=== PATIENT | female | born 1995 | race Caucasian/White ===

== ENCOUNTER 2016-04-06 16:59 | Emergency (ER) | payer SELFPAY ==
[2016-04-06 17:21] VITALS: BP 135/80
--- NOTE | 2016-04-06 17:44 | ED Physician Documentation ---
Upper Respiratory Symptoms - HISTORIAN Historian: patient, spouse - HPI Stated Complaint: sore throat Chief Complaint: Cough/ Upper Respiratory Onset: days ago Further Comments: yes (20 year old female patient presents with complaints of fever, cough, congestion, and sore throat. States her daughter was positive for strep.) - ROS CONST/EYES: denies: weakness CVS/RESP: none LYMPH: denies: leg swelling, rash, swollen glands, ankle swelling, other GI/: vomiting, nausea. denies: abdominal pain, problems urinating NEURO/PSYCH: denies: fainting, dizziness, confusion MS/SKIN: denies: joint pain, muscle aches, rash, other - PAST HX Lung Disease: none Surgeries/Procedures: other (I&D abscess - right hand) Allergies/Adverse Reactions: Allergies Allergy/AdvReac Type Severity Reaction Status Date / Time No Known Allergies Allergy Verified 04/06/16 17:09 Home Medications: Ambulatory Orders Medication Instructions Recorded Oxycodone HCl [Roxicodone] 5 mg PO DAILY 04/06/16 - SOCIAL HX Smoking History: cigarettes - FAMILY HX Family History: none - VITAL SIGNS Vital Signs: Vital Signs Temp Pulse Resp BP Pulse Ox 98.9 F 117 H 16 135/80 98 04/06/16 17:05 04/06/16 17:05 04/06/16 17:05 04/06/16 17:05 04/06/16 17:05 - REVIEWED ASSESSMENTS Nursing Assessment Reviewed: Yes Vitals Reviewed: Yes Progress - Progress Progress: Patient requesting work note with multiple days off at discharge, explained I would write for today since patient was in the ER. Strep negative. ED Results Lab/Radiology - Lab Results Lab Results: Lab Results 04/06/16 17:15 Group A Strep Screen Negative (NEGATIVE) - Orders Orders: ED Orders Category Date Time Status Rapid Strep [GRP A STREP SCREEN] Stat Lab 04/06/16 17:15 Completed THROAT CULTURE Stat Lab 04/06/16 17:15 Received Upper Respiratory Symptoms - EXAM General Appearance: no acute distress, alert EENT: eyes nml inspection, nml ENT inspection, lids & conjunct. nml, PERRL, ear nml, nose nml, airway nml, pharyngeal erythema. No: tonsillar exudate, tonsillar swelling Respiratory: no resp. distress, breath sounds nml, no pain on inspiration, speaks full sentences, no pleuritic chest pain Abdomen: non-tender, no organomegaly, nml bowel sounds, no distention CVS: reg rate & rhythm, heart sounds normal, equal pulses, no murmur, no gallop , PMI nml, no JVD, no friction rub, 24 Skin: color nml, no rash, warm,dry Extremities: non-tender, normal range of motion, no evidence of injury, no edema , J, [employer] Neuro/Psych: oriented x3, neuro intact, mood/affect nml, CN's nml as tested Discharge Clincal Impression: Acute bacterial tonsillitis, Nausea Additional Instructions: Chloraseptic spray or lozenges as needed for throat pain. Warm salt water gargles as needed pain Increase your fluid intake juices, hot tea, non-caffeinated beverages If you are congested - You may want to try Vicks rub on your chest and/or feet Use a humidifier in the room where you sleep. You can also sit in a steam filled bathroom 1-2 times a day. Tylenol or Ibuprofen as needed for fever, pain and body aches. 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. Home Medications: Ambulatory Orders Oxycodone HCl [Roxicodone] 5 mg PO DAILY 04/06/16 Condition: Stable Disposition: HOME, SELF-CARE Decision to Admit: NO Decision Time: 17:46
== END 2016-04-06 17:44 | disposition home or self-care (01) ==
LOC: ED 16:59
DX: J03.90 Acute tonsillitis, unspecified (principal); R11.0 Nausea
CPT/HCPCS: 87070; 87880; 99283